=== PATIENT | male | born 1970 | race Caucasian/White ===

== ENCOUNTER 2024-02-23 20:50 | Emergency (ER) | payer SELFPAY ==
[~2024-02-23] VITALS: Ht 188 cm; Wt 113.6 kg
[2024-02-23 20:55] VITALS: TEMP 98.4
[2024-02-23] MEDS ORDERED: levETIRAcetam 2,000 MG in NS 100 ML IV ONE (21:00)
[2024-02-23 21:26] LABS: BASO % 0.4 % (0.0-2.0); EOS # 0.2 K/mm3 (0.0-0.7); EOS % 1.7 % (0.0-4.0); GRAN # 8.6 K/mm3 (1.4-6.5); GRAN % 78.2 % (42.2-75.2); HEMATOCRIT 40.3 % (42.0-52.0); HEMOGLOBIN 13.5 g/dl (13.5-18.0); LYMPH # 1.4 K/mm3 (1.2-3.4); MEAN CELL VOLUME 85 fl (80.0-100.0); MEAN CORPUSCULAR HEMOGLOBIN 29 pg (27-31); MEAN CORPUSCULAR HGB CONC 34 g/dl (33.0-37.0); MEAN PLATELET VOLUME 9.3 fl (7.4-10.4); MONO # 0.7 K/mm3 (0.1-0.6); MONO % 6.1 % (1.7-9.3); PLATELET COUNT 264 K/mm3 (130-400); RED BLOOD COUNT 4.72 M/mm3 (4.20-5.60); REDCELL DISTRIBUTION WIDTH-CV 14.5 % (11.5-14.5)
[2024-02-23 21:45] LABS: PH 5.5 (5.0-8.5); URINE APPEARANCE CLEAR (CLEAR/HAZY); URINE BLOOD NEGATIVE (NEGATIVE); URINE COLOR Dark Yellow (YELLOW); URINE GLUCOSE NEGATIVE (NEGATIVE); URINE KETONE TRACE (NEGATIVE); URINE NITRATE NEGATIVE (NEGATIVE); URINE PROTEIN(semi-quant) TRACE (NEGATIVE)
[2024-02-23 21:46] LABS: ALANINE AMINOTRANSFERASE 44 U/L (0-55); ALBUMIN 4.3 g/dL (3.5-5.0); ALKALINE PHOSPHATASE 77 U/L (40-150); ANION GAP 12 mmol/L (7-16); AST,SGOT 47 U/L (5-34); BLOOD UREA NITROGEN 21 mg/dL (8-26); CALCIUM 10.2 mg/dL (8.4-10.2); CHLORIDE 105 mEq/L (98-107); CREATINE KINASE 417 U/L (30-200); CREATININE, serum 0.83 mg/dL (0.72-1.25); GLUCOSE 90 mg/dL (70-99); MAGNESIUM 2.4 mg/dL (1.6-2.6); POTASSIUM 3.8 mEq/L (3.5-4.5); SODIUM 141 mEq/L (136-145); TOTAL PROTEIN 7.9 g/dl (6.2-8.1)
[2024-02-23 21:50] LABS: COLLECTION METHOD CLEAN CATCH
[2024-02-23 21:55] LABS: BILIRUBIN,TOTAL 0.8 mg/dL (0.2-1.2)
[2024-02-23 22:08] LABS: TROPONIN-I < 0.010 ng/mL (0.00-0.033)
[2024-02-23] MEDS ORDERED: NS 1,000 ML IV ONE (22:15)
[2024-02-23] MEDS ORDERED: Ketorolac 15 MG/ML VIAL IV ONE (22:30)
[2024-02-23 23:17] VITALS: BP 139/89; PULSE 80
== END 2024-02-23 23:17 | disposition home or self-care (01) ==
LOC: COL.ER 20:50
PROVIDERS: Emergency Medicine
DX: E86.0 Dehydration (principal); G40.909 Epilepsy, unspecified, not intractable, without status epilepticus; Z79.899 Other long term (current) drug therapy
CPT/HCPCS: J1885; J1953; J7030

== ENCOUNTER 2024-03-01 15:56 | Emergency (ER) | payer SELFPAY ==
[~2024-03-01] VITALS: Ht 188 cm; Wt 113.6 kg
[2024-03-01 15:57] VITALS: TEMP 97.6
[2024-03-01 16:45] LABS: BASO # 0.1 K/mm3 (0.0-0.2); BASO % 0.5 % (0.0-2.0); EOS # 0.2 K/mm3 (0.0-0.7); EOS % 1.7 % (0.0-4.0); GRAN # 7.8 K/mm3 (1.4-6.5); GRAN % 73.9 % (42.2-75.2); HEMATOCRIT 40.6 % (42.0-52.0); HEMOGLOBIN 13.5 g/dl (13.5-18.0); LYMPH # 1.8 K/mm3 (1.2-3.4); LYMPH % 17.1 % (20.0-51.0); MEAN CELL VOLUME 86 fl (80.0-100.0); MEAN CORPUSCULAR HEMOGLOBIN 29 pg (27-31); MEAN CORPUSCULAR HGB CONC 33 g/dl (33.0-37.0); MEAN PLATELET VOLUME 9.5 fl (7.4-10.4); MONO # 0.6 K/mm3 (0.1-0.6); MONO % 5.6 % (1.7-9.3); PLATELET COUNT 310 K/mm3 (130-400); RED BLOOD COUNT 4.74 M/mm3 (4.20-5.60); REDCELL DISTRIBUTION WIDTH-CV 14.6 % (11.5-14.5)
[2024-03-01] MEDS ORDERED: LR 1,000 ML IV ONE ×2 (16:45→18:00)
[2024-03-01 17:06] LABS: ALBUMIN 4.1 g/dL (3.5-5.0); BILIRUBIN,TOTAL 0.9 mg/dL (0.2-1.2); CALCIUM 9.8 mg/dL (8.4-10.2); CREATININE, serum 0.88 mg/dL (0.72-1.25); POTASSIUM 3.9 mEq/L (3.5-4.5); TOTAL PROTEIN 7.2 g/dl (6.2-8.1)
[2024-03-01 19:40] LABS: COLLECTION METHOD CLEAN CATCH
[2024-03-01 19:50] LABS: PH 6.5 (5.0-8.5); URINE APPEARANCE CLOUDY (CLEAR/HAZY); URINE BLOOD NEGATIVE (NEGATIVE); URINE COLOR Dark Yellow (YELLOW); URINE GLUCOSE NEGATIVE (NEGATIVE); URINE KETONE TRACE (NEGATIVE); URINE NITRATE NEGATIVE (NEGATIVE); URINE PROTEIN(semi-quant) TRACE (NEGATIVE)
[2024-03-01 20:15] VITALS: BP 163/85; PULSE 78
== END 2024-03-01 20:15 | disposition home or self-care (01) ==
LOC: COL.ER 15:56
PROVIDERS: Physician Assistant
DX: E86.0 Dehydration (principal); R79.89 Other specified abnormal findings of blood chemistry; F17.210 Nicotine dependence, cigarettes, uncomplicated
CPT/HCPCS: J7120